=== PATIENT | male | born 1970 | race Caucasian/White ===

== ENCOUNTER 2025-06-14 10:14 | Inpatient (IN) | payer BC, SELFPAY ==
[2025-06-14] VITALS (51 sets, daily range): BP systolic 112–150; BP diastolic 61–77; PULSE 82–125; TEMP 36.8–36.9; O2SAT 97–100; BMI 25.1
--- NOTE | 2025-06-14 10:55 | ECG_ITS ---
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
--- NOTE | 2025-06-14 10:55 | XR_ITS ---
[address] [address] Patient Name: PUNEET HENDRICKS MRN: [id number] date: 1970 Sex: M Assigned Patient Location: ER Current Patient Location: ED.MAIN Accession/Order Number: [id number] Exam Date: 06/14/2025 11:45 Report Date: 06/14/2025 11:59 At the request of: LADY BULLARD MD Procedure: XR chest 1V XR chest 1V 06/14/2025 11:50 AM SIGNS AND SYMPTOMS: Shortness breath, nausea and vomiting PROTOCOL: Fall frontal radiograph of the chest COMPARISON: 02/16/2023 FINDINGS: The trachea is midline. The heart and mediastinal structures are within normal limits. The lung parenchyma is clear. The bony thorax is intact. Degenerative changes are noted in the shoulders and thoracic spine. XR/XR chest 1V IMPRESSION: No acute cardiopulmonary pathology. Impression dictated by: Erickson Bryant M.D. 06/14/2025 11:59 AM Dictation Location: [place] [address] Electronically authenticated by: [id number] Y Date: 06/14/2025 11:59
--- NOTE | 2025-06-14 10:57 | ED.GENADUL1 ---
HPI HPI - General Adult General Chief complaint: Nausea/Vomiting/Diarrhea Stated complaint: NAUSEA/VOMITING Time Seen by Provider: 06/14/25 10:51 Source: patient Mode of arrival: Wheelchair Limitations: no limitations History of Present Illness HPI narrative: The patient is a 54-year-old male with history of diabetes type 2 on insulin the patient apparently for the last 3 to 4 days has not been feeling well has been nauseous vomiting, he is denying any chest pain or any abdominal pain He also denies any fever or chills and the patient mentioned that he has been trying to eat and drink mostly Pedialyte but he has been taking his medication The patient only feeling tired he is denying any other symptoms Related Data Home Medications ?Medication ?Instructions ?Recorded ?Confirmed duloxetine 30 mg capsule,delayed 30 mg PO QDAY 06/14/25 06/14/25 release insulin degludec 100 unit/mL (3 18 unit subcut DAILY 06/14/25 06/14/25 mL) subcutaneous pen insulin lispro 100 unit/mL 1 sliding scale dose subcut .with 06/14/25 06/14/25 subcutaneous pen meals Allergies Allergy/AdvReac Type Severity Reaction Status Date / Time acetaminophen (From Tylenol) Allergy Mild Hives Verified 06/14/25 10:36 meperidine (From Demerol) Allergy Mild Hives Verified 06/14/25 10:36 Review of Systems ROS Status of ROS 10 or more systems reviewed and unremarkable except as noted in history and below PFSH PFSH Social History Little interest or pleasure in doing things: not at all Feeling down, depressed, or hopeless: not at all Exam Narrative Exam Narrative: Nurses notes and vital signs reviewed and patient is not hypoxic. General: Well-appearing and in no apparent distress. Skin: Warm, dry, no pallor noted. No rash. Head: Normocephalic, atraumatic. Neck: Supple, non-tender. Eye: Pupils are equal, round and EOMI. No scleral icterus. Ears, Nose, Mouth, and Throat: . Dry mucous membranes no posterior oropharynx erythema, uvula is mid-line Cardiovascular: Regular Rate and Rhythm without murmur, gallop or rub. Respiratory: No accessory muscle use or respiratory distress. Lungs are clear to auscultation, no wheezing, rales or rhonchi Chest Wall: no tenderness Back: No midline thoracic or lumbar vertebral tenderness. No CVA tenderness Musculoskeletal: normal ROM, no calf or popliteal tenderness, no lower extremity edema/swelling GI: Abdomen is soft, non-distended. Normal bowel sounds. No masses appreciated. No tenderness to palpation. No rebound, guarding, or rigidity noted. Neurological: A&O x4. No cranial nerve dysfunction observed. No truncal ataxia. Moves all extremities. Sensation intact. Psychiatric: Cooperative and interactive. Normal mood and affect. Constitutional Vital Signs, click to edit/add: Last Vital Signs Temp 98.4 F 06/14/25 10:37 Pulse 100 H 06/14/25 15:30 Resp 16 06/14/25 15:30 BP 125/70 06/14/25 15:30 Pulse Ox 100 06/14/25 15:30 O2 Del Method Room Air 06/14/25 15:30 Course Vital Signs Vital signs: Vital Signs Temperature 98.4 F 06/14/25 10:37 Pulse Rate 125 H 06/14/25 10:37 Respiratory Rate 20 06/14/25 10:37 Blood Pressure 127/65 06/14/25 10:37 Pulse Oximetry 99 06/14/25 10:37 Oxygen Delivery Method Room Air 06/14/25 10:37 Temperature 98.4 F 06/14/25 10:37 Pulse Rate 100 H 06/14/25 15:30 Respiratory Rate 16 06/14/25 15:30 Blood Pressure 125/70 06/14/25 15:30 Pulse Oximetry 100 06/14/25 15:30 Oxygen Delivery Method Room Air 06/14/25 15:30 Medical Decision Making [facility] Narrative Medical decision making narrative: The patient was noted to be tachycardic on arrival his EKG was showing sinus tachycardia with a heart rate of [address] elevation The patient CBC showed no acute significant pathology but the chemistry was showing that the patient have a DKA with a picture of elevated anion gap of 33 and bicarb was around 5.9 The patient venous blood gas confirmed acidosis and the patient also had acetone's and the urine shows ketones Patient blood sugar was above 400 upon arrival the patient was started on IV fluids initially with 1 bolus 1 L of normal saline and the patient then started on insulin drip in addition to normal saline initially The patient blood workup repeated after an hour from the insulin drip and it shows improvement with anion gap right now at 27 The patient still have improvement of his kidney function and potassium right now The patient did had a troponin that is mildly elevated at 76 went up to 92 which is mostly secondary to the tachycardia at the patient have a history of coronary artery disease as well The patient did not have any chest pain at any time The patient case discussed with and he agreed on the above-mentioned plan Lab Data Labs: Lab Results 06/14/25 06/14/25 06/14/25 Range/Units 11:21 11:58 13:24 WBC 13.2 H (4.0-11.0) 10^3/uL RBC 4.78 (4.70-6.10) 10^6/uL Hgb 15.5 (14.0-18.0) g/dL Hct 46.2 (42.0-54.0) % MCV 96.7 H (80.0-94.0) fL MCH 32.4 (25.9-34.0) pg MCHC 33.5 (29.9-35.2) g/dL RDW 11.6 (11.0-15.0) % Plt Count 257 (150-450) 10^3/uL MPV 11.0 (9.5-13.5) fL Neut % (Auto) 87.5 H (43.0-75.0) % Lymph % (Auto) 4.6 L (20.5-60.0) % Boundary % (Auto) 6.7 (1.7-12.0) % Eos % (Auto) 0.1 L (0.9-7.0) % Baso % (Auto) 0.3 (0.2-2.0) % Neut # (Auto) 11.5 H (1.4-6.5) 10^3/uL Lymph # (Auto) 0.6 L (1.2-3.8) 10^3/uL Boundary # (Auto) 0.9 H (0.3-0.8) 10^3/uL Eos # (Auto) 0.0 (0.0-0.7) 10^3/uL Baso # (Auto) 0.0 (0.0-0.1) 10^3/uL Abs Immat Gran (auto) 0.10 H (0.00-0.03) 10^3/uL Imm/Tot Granulo (auto) 0.8 H (0.0-0.5) % VBG pH (7.330-7.430) VBG pCO2 (40.0-52.0) mmHg Sodium 139 (136-145) mmol/L Potassium 5.6 H (3.5-5.1) mmol/L Chloride 100 (98-107) mmol/L Carbon Dioxide 5.9 L (21.0-32.0) mmol/L Anion Gap 38.7 BUN 29.0 H (7.0-18.0) mg/dL Creatinine 1.96 H (0.70-1.30) mg/dL Est GFR ( Amer) 43 L (>=60 mL/min/1.73m^2) Est GFR (Non-Af Amer) 36 L (>=60 mL/min/1.73m^2) BUN/Creatinine Ratio 14.8 Glucose 423 H (74-106) mg/dL Estimat Average Glucose 306 mg/dL Hemoglobin A1c 12.3 H (4.5-6.2) % Calcium 8.5 (8.5-10.1) mg/dL Phosphorus 7.4 H* (2.6-4.7) mg/dL Magnesium 2.2 (1.8-2.4) mg/dL Total Bilirubin 0.8 (0.2-1.0) mg/dL AST 15 (15-37) U/L ALT 25 (16-63) U/L Alkaline Phosphatase 65 (46-116) U/L Troponin I High Sens 78.9 H* (4.0-76.1) pg/mL Total Protein 7.9 (6.4-8.2) g/dL Albumin 3.9 (3.4-5.0) g/dL Globulin 4.0 g/dL Albumin/Globulin Ratio 1.0 Acetone, Qual Moderate A (NEGATIVE) POC Glucose 371 H (74-106) mg/dL 06/14/25 06/14/25 06/14/25 Range/Units 13:29 14:27 15:09 WBC (4.0-11.0) 10^3/uL RBC (4.70-6.10) 10^6/uL Hgb (14.0-18.0) g/dL Hct (42.0-54.0) % MCV (80.0-94.0) fL MCH (25.9-34.0) pg MCHC (29.9-35.2) g/dL RDW (11.0-15.0) % Plt Count (150-450) 10^3/uL MPV (9.5-13.5) fL Neut % (Auto) (43.0-75.0) % Lymph % (Auto) (20.5-60.0) % Boundary % (Auto) (1.7-12.0) % Eos % (Auto) (0.9-7.0) % Baso % (Auto) (0.2-2.0) % Neut # (Auto) (1.4-6.5) 10^3/uL Lymph # (Auto) (1.2-3.8) 10^3/uL Boundary # (Auto) (0.3-0.8) 10^3/uL Eos # (Auto) (0.0-0.7) 10^3/uL Baso # (Auto) (0.0-0.1) 10^3/uL Abs Immat Gran (auto) (0.00-0.03) 10^3/uL Imm/Tot Granulo (auto) (0.0-0.5) % VBG pH 7.045 L 7.077 L (7.330-7.430) VBG pCO2 23.8 L 27.3 L (40.0-52.0) mmHg Sodium 140 (136-145) mmol/L Potassium 3.9 (3.5-5.1) mmol/L Chloride 105 (98-107) mmol/L Carbon Dioxide 7.9 L (21.0-32.0) mmol/L Anion Gap 31.0 BUN 27.0 H (7.0-18.0) mg/dL Creatinine 1.69 H (0.70-1.30) mg/dL Est GFR ( Amer) 52 L (>=60 mL/min/1.73m^2) Est GFR (Non-Af Amer) 42 L (>=60 mL/min/1.73m^2) BUN/Creatinine Ratio 16.0 Glucose 272 H (74-106) mg/dL Estimat Average Glucose mg/dL Hemoglobin A1c (4.5-6.2) % Calcium 8.3 L (8.5-10.1) mg/dL Phosphorus (2.6-4.7) mg/dL Magnesium (1.8-2.4) mg/dL Total Bilirubin (0.2-1.0) mg/dL AST (15-37) U/L ALT (16-63) U/L Alkaline Phosphatase (46-116) U/L Troponin I High Sens 92.8 H* (4.0-76.1) pg/mL Total Protein (6.4-8.2) g/dL Albumin (3.4-5.0) g/dL Globulin g/dL Albumin/Globulin Ratio Acetone, Qual (NEGATIVE) POC Glucose 307 H (74-106) mg/dL 06/14/25 Range/Units 15:28 WBC (4.0-11.0) 10^3/uL RBC (4.70-6.10) 10^6/uL Hgb (14.0-18.0) g/dL Hct (42.0-54.0) % MCV (80.0-94.0) fL MCH (25.9-34.0) pg MCHC (29.9-35.2) g/dL RDW (11.0-15.0) % Plt Count (150-450) 10^3/uL MPV (9.5-13.5) fL Neut % (Auto) (43.0-75.0) % Lymph % (Auto) (20.5-60.0) % Boundary % (Auto) (1.7-12.0) % Eos % (Auto) (0.9-7.0) % Baso % (Auto) (0.2-2.0) % Neut # (Auto) (1.4-6.5) 10^3/uL Lymph # (Auto) (1.2-3.8) 10^3/uL Boundary # (Auto) (0.3-0.8) 10^3/uL Eos # (Auto) (0.0-0.7) 10^3/uL Baso # (Auto) (0.0-0.1) 10^3/uL Abs Immat Gran (auto) (0.00-0.03) 10^3/uL Imm/Tot Granulo (auto) (0.0-0.5) % VBG pH (7.330-7.430) VBG pCO2 (40.0-52.0) mmHg Sodium (136-145) mmol/L Potassium (3.5-5.1) mmol/L Chloride (98-107) mmol/L Carbon Dioxide (21.0-32.0) mmol/L Anion Gap BUN (7.0-18.0) mg/dL Creatinine (0.70-1.30) mg/dL Est GFR ( Amer) (>=60 mL/min/1.73m^2) Est GFR (Non-Af Amer) (>=60 mL/min/1.73m^2) BUN/Creatinine Ratio Glucose (74-106) mg/dL Estimat Average Glucose mg/dL Hemoglobin A1c (4.5-6.2) % Calcium (8.5-10.1) mg/dL Phosphorus (2.6-4.7) mg/dL Magnesium (1.8-2.4) mg/dL Total Bilirubin (0.2-1.0) mg/dL AST (15-37) U/L ALT (16-63) U/L Alkaline Phosphatase (46-116) U/L Troponin I High Sens (4.0-76.1) pg/mL Total Protein (6.4-8.2) g/dL Albumin (3.4-5.0) g/dL Globulin g/dL Albumin/Globulin Ratio Acetone, Qual (NEGATIVE) POC Glucose 230 H (74-106) mg/dL Discharge Plan Discharge Chief Complaint: Nausea/Vomiting/Diarrhea Clinical Impression: Diabetic keto-acidosis, Elevated troponin, AGUS (acute kidney injury) Patient Disposition: Admitted As Inpatient Time of Disposition Decision: 16:31
[2025-06-14] MEDS: 0.9 % SODIUM CHLORIDE 1,000 ML 1000 ML IV ×2 (11:28→13:09)
[2025-06-14 11:29] LABS: Hematocrit 46.2 % (42.0-54.0); Hemoglobin 15.5 g/dL (14.0-18.0); Immature Granulocytes Abs Auto 0.10 10^3/uL (0.00-0.03); Immature Granulocytes Pct Auto 0.8 % (0.0-0.5); Lymphocytes Absolute Auto 0.6 10^3/uL (1.2-3.8); Mean Corpuscular HGB Conc 33.5 g/dL (29.9-35.2); Mean Corpuscular Hemoglobin 32.4 pg (25.9-34.0); Mean Corpuscular Volume 96.7 fL (80.0-94.0); Platelet Count 257 10^3/uL (150-450); Red Blood Count 4.78 10^6/uL (4.70-6.10); White Blood Count 13.2 10^3/uL (4.0-11.0)
--- OUTSIDE RECORDS SUMMARY | 2025-06-14 12:01 | XMS_ITS | Clinical Summary ---
Author Organization [facility] Address [address] [place] [address] Phone Care Team Providers Care Food General Manager Name Role Phone Mackenzie Christie MD Primary Care Provider [phone] Allergies Active Allergy Reactions Criticality Noted Date Comments Meperidine Unknown 11/12/2023 Morphine Unknown 11/12/2023 Acetaminophen Unknown 11/12/2023 Medications pioglitazone (Actos) 45 mg tablet Take 1 tablet (45 mg) by mouth once daily. Active aspirin 81 mg EC tablet Take 1 tablet (81 mg) by mouth once daily. Active ticagrelor (Brilinta) 90 mg tablet Take 1 tablet (90 mg) by mouth 2 times a day. Active ezetimibe (Zetia) 10 mg tablet Take 1 tablet (10 mg) by mouth once daily. Active losartan (Cozaar) 25 mg tablet Take 1 tablet (25 mg) by mouth once daily. Active metoprolol tartrate (Lopressor) 50 mg tablet Take 1 tablet by mouth once daily. Active pravastatin (Pravachol) 20 mg tablet Take 1 tablet (20 mg) by mouth once daily. Active insulin glargine (Toujeo Max U-300 SoloStar) 300 unit/mL (3 mL) injection Inject 300 Units under the skin once daily at bedtime. Take as directed per insulin instructions. Active traZODone (Desyrel) 50 mg tablet Take 1 tablet (50 mg) by mouth once daily at bedtime. Active Active Problems Problem Noted Date Diagnosed Date Coronary artery disease invo lving [place] coronary artery of [place] heart with angina pectoris with documented spasm 11/12/2023 History of AK (myocardial infarction) 11/12/2023 History of PTCA 11/12/2023 Hyperlipidemia 11/12/2023 Diabetes mellitus (Multi) 11/12/2023 Family History Medical History Relation Name Comments MALIGNANT NEOPLASM Father Relation Name Status Comments Father Social History Tobacco Use Types Packs/Day Years Used Date Smoking Tobacco: Former Cigarettes Smokeless Tobacco: Never Tobacco Cessation:Counseling Given: Not Answered Alcohol Use Standard Drinks/Week Comments Yes 0 (1 standard drink = 0.6 oz pur e alcohol) Sex and Gender Information Value Date Recorded Sex Assigned at Not on file Legal Sex Male 11:54 AM EDT Gender Identity Not on file Sexual Orientation Not on file Last Filed Vital Signs Vital Sign Reading Time Taken Comments Blood Pressure 120/68 05/12/2023 8:34 AM EDT Pulse 80 05/12/2023 8:34 AM EDT Temperature - - Respiratory Rate - - Oxygen Saturation - - Inhaled Oxygen Concentration - - Weight 77.1 kg (170 lb) 05/12/2023 8:34 AM EDT Height 175.3 cm (5' 9 ) 05/12/2023 8:34 AM EDT Body Mass Index 25.1 05/12/2023 8:34 AM EDT Plan of Treatment Health Maintenance Due Date Last Done Comments CT Colonography 1970 Colonoscopy 1970 Colorectal Cancer Screening 1970 Diabetes: Hemoglobin A1C 1970 Diabetes: Urine Protein Screening 1970 FIT-DNA (Cologuard) 1970 FIT 1970 HIV Screening 1970 Lipid Panel 1970 Sigmoidoscopy 1970 Yearly Adult Physical 1970 MMR Vaccines (1 of 1 - Stand marleni series) 1971 Diabetes: Retinopathy Screening 1980 Hepatitis C Screening 1988 Hepatitis B Vaccines (1 of 3 - 19+ 3-dose series) 1989 Pneumococcal Vaccine (1 of 2 - PCV) 1989 DTaP/Tdap/Td Vaccines (1 - Tdap) 1992 PSA Prostate Cancer Screening 2020 Zoster Vaccines (1 of 2) 2020 COVID-19 Vaccine (1 - 2023-2 5 season) 2025 Influenza Vaccine (#1) 2025 HIB Vaccines Aged Out No longer eligi ble based on patient's age to complete this topic HPV Vaccines Aged Out No longer eligi ble based on patient's age to complete this topic Hepatitis A Vaccines Aged Out No long er eligible based on patient's age to complete this topic IPV Vaccines Aged Out No longer eligi ble based on patient's age to complete this topic Meningococcal Vaccine Aged Out No gissel anna eligible based on patient's age to complete this topic Rotavirus Vaccines Aged Out No longer eligible based on patient's age to complete this topic Insurance [facility] Care Teams Food General Manager Relationship Specialty Start Date End Date Mackenzie Christie MD [facility] [address] [place] [id number] PCP - General 03/11/23
--- OUTSIDE RECORDS SUMMARY | 2025-06-14 12:01 | XMS_ITS | Encounter Summary ---
Author Organization [facility] Address [address] [place] [address] Phone Care Team Providers Care Office Technician Name Role Phone Mackenzie Christie MD Primary Care Provider Encounter Details Date Type Department Care Team (Late st Contact Info) Description 02/18/2023 Orders Only [facility] [address] [place] [address] Conversion, Onbase Social History Tobacco Use Types Packs/Day Years Used Date Smoking Tobacco: Never Assessed Sex and Gender Information Value Date Recorded Sex Assigned at Not on file Legal Sex Male 11:54 AM EDT Gender Identity Not on file Sexual Orientation Not on file documented as of this encounter Plan of Treatment Scheduled Orders Name Type Priority Associated Diagnoses Orde r Schedule OUTSIDE LAB SCAN Lab Ordered: 02/18/2023 documented as of this encounter Visit Diagnoses Not on filedocumented in this encounter Care Teams Office Technician Relationship Specialty Start Date End Date Mackenzie Christie MD [address] [place] [address] [place] [address] PCP - General 03/11/23 documented as of this encounter
--- OUTSIDE RECORDS SUMMARY | 2025-06-14 12:01 | XMS_ITS | Encounter Summary ---
Author Organization [facility] Address [address] [place] [address] Phone Care Team Providers Care Humanities Coordinator Name Role Phone Mackenzie Christie MD Primary Care Provider [phone] Encounter Details Date Type Department Care Team (Late st Contact Info) Description 02/17/2023 Orders Only [facility] [address] [place] [address] Conversion, Onbase Social History Tobacco Use Types [...] r Schedule OUTSIDE LAB SCAN Lab Ordered: 02/17/2023 documented as of this encounter Visit Diagnoses Not on filedocumented in this encounter Care Teams Humanities Coordinator Relationship Specialty Start Date End Date Mackenzie Christie MD [address] [place] [address] [place] [address] PCP - General 03/11/23 documented as of this encounter
[2025-06-14 12:36] LABS: Alanine Aminotransferase 25 U/L (16-63); Albumin Globulin Ratio 1.0; Albumin Level 3.9 g/dL (3.4-5.0); Alkaline Phosphatase 65 U/L (46-116); Anion Gap 38.7; Aspartate Amino Transferase 15 U/L (15-37); Blood Urea Nitrogen 29.0 mg/dL (7.0-18.0); Calcium 8.5 mg/dL (8.5-10.1); Carbon Dioxide 5.9 mmol/L (21.0-32.0); Chloride 100 mmol/L (98-107); Estimated GFR (African America 43 (>=60 mL/min/1.73m^2); Estimated GFR (Non-African Ame 36 (>=60 mL/min/1.73m^2); Globulin 4.0 g/dL; Glucose 423 mg/dL (74-106); Potassium 5.6 mmol/L (3.5-5.1); Sodium 139 mmol/L (136-145); Total Protein 7.9 g/dL (6.4-8.2)
[2025-06-14 13:40] LABS: PCO2 VBG 23.8 mmHg (40.0-52.0); pH VBG 7.045 (7.330-7.430)
[2025-06-14 13:49] LABS: Magnesium 2.2 mg/dL (1.8-2.4)
[2025-06-14] MEDS: INSULIN REGULAR IN 0.9 % NACL 100 UNIT/100 ML PLAST..BAG 7.711 UNIT IV (13:49)
[2025-06-14 15:22] LABS: PCO2 VBG 27.3 mmHg (40.0-52.0); pH VBG 7.077 (7.330-7.430)
[2025-06-14 15:39] LABS: Anion Gap 31.0; Blood Urea Nitrogen 27.0 mg/dL (7.0-18.0); Calcium 8.3 mg/dL (8.5-10.1); Carbon Dioxide 7.9 mmol/L (21.0-32.0); Chloride 105 mmol/L (98-107); Estimated GFR (African America 52 (>=60 mL/min/1.73m^2); Estimated GFR (Non-African Ame 42 (>=60 mL/min/1.73m^2); Glucose 272 mg/dL (74-106); Potassium 3.9 mmol/L (3.5-5.1); Sodium 140 mmol/L (136-145)
[2025-06-14] MEDS: DEXTROSE 5 %-0.45 % SOD CHLORD 1,000 ML 200 ML IV (15:57)
--- NOTE | 2025-06-14 17:15 | PM.HP ---
HPI H&P: HPI History of Present Illness Chief complaint: Diabetic KETO ACIDOSIS AKL Narrative: Mr. Huggins is a 54-year-old gentleman with history of diabetes. He came in with 3 days history of progressive nausea, vomiting and not feeling well. He was found to have severe DKA. No fever or chills. No chest pain or palpitation. No abdominal pain, just abdominal discomfort. Patient uses his insulin at home but admitted that he has not been using insulin over the last few days. Opioid HPI Opioid Management Most Recent Pain and Opioid Data: Last Pain Assessment 06/14/25, 19:00 Last ORT Total Score 0 06/14/25, 18:02 Last ORT Risk Category Low Risk 06/14/25, 18:02 Review of Systems ROS Status of ROS 10 or more systems reviewed and unremarkable except as noted in history and below PFSH PFS Medical History (Updated 06/14/25 @ 18:27 by Savanah Justin) History of herniated intervertebral disc ?Z87.39 - Personal history of other diseases of the musculoskeletal system and connective tissue (ICD-10) Coronary artery disease ?I25.10 - Atherosclerotic heart disease of [place] coronary artery without angina pectoris (ICD-10) Diabetes mellitus ?E11.9 - Type 2 diabetes mellitus without complications (ICD-10) Surgical History (Updated 06/14/25 @ 18:27 by Savanah Justin) History of back surgery ?Z98.890 - Other specified postprocedural states (ICD-10) History of tonsillectomy ?Z90.89 - Acquired absence of other organs (ICD-10) History of heart artery stent ?Z95.5 - Presence of coronary angioplasty implant and graft (ICD-10) Social History (Updated 06/14/25 @ 18:28 by Savanah Justin) Smoking status: Former smoker Nicotine containing products detail: occ cigar Non-prescribed substance use: denies use Highest level of school completed/degree received: high school graduate Little interest or pleasure in doing things: not at all Feeling down, depressed, or hopeless: not at all Meds Home Medications and Allergies Home Medications ?Medication ?Instructions ?Recorded ?Confirmed ?Type duloxetine 30 mg capsule,delayed 30 mg PO QDAY 06/14/25 06/14/25 History release insulin degludec 100 unit/mL (3 18 unit subcut DAILY 06/14/25 06/14/25 History mL) subcutaneous pen insulin lispro 100 unit/mL 1 sliding scale dose subcut .with 06/14/25 06/14/25 History subcutaneous pen meals Allergies Allergy/AdvReac Type Severity Reaction Status Date / Time acetaminophen (From Tylenol) Allergy Mild Hives Verified 06/14/25 10:36 meperidine (From Demerol) Allergy Mild Hives Verified 06/14/25 10:36 Exam Narrative Exam Narrative: [pt is awake and alert. oriented to place, time and person, somewhat lethargic HEENT: [place] conjunctiva and NL buccal mucosa dry buccal mucosa Neck: Supple, no tenderness Endocrine: No Thyromegaly. Vascular: No JVD or carotid bruit. Lymphatic: No cervical lymphadenopathy. Chest: CTA no DTP. Heart RRR, no extra sound or murmur. Abd: Soft, no tenderness, no rebound and no rigidity. Increase abd girth therefore clinically I could not exclude the possibility of intra abd mass or organomegaly. LE: No cyanosis or clubbing, no varices or edema. Neuro: A A O. Nl speech, comprehension and attention. Nl and symetrical motor and tone examination through out. []] Constitutional Vital Signs, click to edit/add: Last Vital Signs Temp 98.4 F 06/14/25 10:37 Pulse 97 H 06/14/25 16:40 Resp 16 06/14/25 15:30 BP 112/71 06/14/25 16:30 Pulse Ox 98 06/14/25 16:40 O2 Del Method Room Air 06/14/25 15:30 Results Labs Labs: Short CBC 06/14/25 Range/Units 11:21 WBC 13.2 H (4.0-11.0) 10^3/uL Hgb 15.5 (14.0-18.0) g/dL Hct 46.2 (42.0-54.0) % Plt Count 257 (150-450) 10^3/uL BMP 06/14/25 06/14/25 11:58 15:09 Sodium 139 140 Potassium 5.6 H 3.9 Chloride 100 105 Carbon Dioxide 5.9 L 7.9 L BUN 29.0 H 27.0 H Creatinine 1.96 H 1.69 H Glucose 423 H 272 H Calcium 8.5 8.3 L Liver Function 06/14/25 Range/Units 11:58 Total Bilirubin 0.8 (0.2-1.0) mg/dL AST 15 (15-37) U/L ALT 25 (16-63) U/L Alkaline Phosphatase 65 (46-116) U/L Albumin 3.9 (3.4-5.0) g/dL ABG ABG results: 06/14/25 06/14/25 13:29 15:09 VBG pH 7.045 L 7.077 L VBG pCO2 23.8 L 27.3 L Assessment and Plan Assessment and Plan (1) AGUS (acute kidney injury): (2) Elevated troponin: (3) Diabetic keto-acidosis: Plan DKA I have accepted to admit the patient to the stepdown unit. Insulin drip. Titration Fluid as per protocol Electrolytes management Monitor bicarbonate and anion gap Switch to sliding scale when gap closes down Check A1c Counseling and education about diabetes and diabetes management AGUS, dehydration and volume loss secondary to above IV fluid infusion, electrolytes disturbance, volume support. SIRS present on admission secondary to above. No clinical evidence of active infection Monitor white count and temperature. Elevated troponin without any active chest pain. No ST elevation or depression. Patient has right bundle. No old records available. I suspect that troponin elevation is secondary to acute metabolic derangement in the setting of AGUS. No clinical evidence to suggest acute coronary syndrome or acute plaque rupture however I suspect that the patient has underlying CAD and will likely require ischemic evaluation. The timing of ischemic evaluation would need to be determined as soon as his acute metabolic decompensation is corrected Meanwhile I will start patient on aspirin daily, small dose beta-sriram. 1 dose of Lovenox 1 mg/kg until we see how his troponin is trending. 1 dose of Plavix. No obvious clinical contraindication for that. Echocardiogram to assess cardiac function, valvular status. If echocardiogram does not show cardiomyopathy then elective ischemic evaluation would be desirable. Chronic medical conditions not listed above, incidental findings seen on labs and imaging. These would need to be addressed. Could be addressed when time and condition are appropriate. Could be addressed in the outpatient setting by PCP collaboration with other needed outpatient providers.
[2025-06-14] MEDS: POTASSIUM CHLORIDE 20 MEQ in 0.9 % SODIUM CHLORIDE 250 ML 130 MEQ IV (17:19)
[2025-06-14] MEDS: CLOPIDOGREL BISULFATE 75 MG TABLET 150 MG PO (18:12)
[2025-06-14] MEDS: ENOXAPARIN SODIUM 80 MG/0.8 ML SYRINGE 75 MG SUBQ (18:12)
[2025-06-14] MEDS: ASPIRIN 325 MG TABLET.DR PO (18:12)
[2025-06-14] MEDS: POTASSIUM CHLORIDE 10 MEQ ER TABLET 20 MEQ PO (18:12)
--- NOTE | 2025-06-14 18:33 | PC.NURSE ---
1800 admitted to stepdown from er, bedside report obtained. pt accompanied by visitor. denies pain, stated he is hungry. pt stated he started not feeling well of last week, then started with n/v on friday. pt has prescription meds with him, those were locked in [employer] sales and service supervisor room. pt oriented to room and call light, meal ordered per request.
[2025-06-14] MEDS: METOPROLOL TARTRATE 25 MG TABLET PO (20:13)
[2025-06-14] MEDS: PANTOPRAZOLE SODIUM 40 MG TABLET.DR PO (20:14)
[2025-06-14] MEDS: TEMAZEPAM 15 MG CAPSULE PO (20:16)
[2025-06-14 22:09] LABS: Anion Gap 16.9; Blood Urea Nitrogen 18.0 mg/dL (7.0-18.0); Calcium 7.6 mg/dL (8.5-10.1); Carbon Dioxide 18.6 mmol/L (21.0-32.0); Chloride 105 mmol/L (98-107); Estimated GFR (African America 53 (>=60 mL/min/1.73m^2); Estimated GFR (Non-African Ame 43 (>=60 mL/min/1.73m^2); Glucose 272 mg/dL (74-106); Potassium 4.5 mmol/L (3.5-5.1); Sodium 136 mmol/L (136-145)
[2025-06-14] MEDS: DEXTROSE 5 %-0.45 % SOD CHLORD 1,000 ML 150 ML IV (23:28)
[2025-06-15] VITALS (69 sets, daily range): BP systolic 97–120; BP diastolic 51–70; PULSE 72–103; TEMP 36.6–37.1; O2SAT 96–100
[2025-06-15 05:52] LABS: Hematocrit 36.7 % (42.0-54.0); Hemoglobin 12.8 g/dL (14.0-18.0); Immature Granulocytes Abs Auto 0.03 10^3/uL (0.00-0.03); Immature Granulocytes Pct Auto 0.6 % (0.0-0.5); Lymphocytes Absolute Auto 1.1 10^3/uL (1.2-3.8); Mean Corpuscular HGB Conc 34.9 g/dL (29.9-35.2); Mean Corpuscular Hemoglobin 32.7 pg (25.9-34.0); Mean Corpuscular Volume 93.9 fL (80.0-94.0); Platelet Count 170 10^3/uL (150-450); Red Blood Count 3.91 10^6/uL (4.70-6.10); White Blood Count 5.4 10^3/uL (4.0-11.0)
[2025-06-15 06:14] LABS: Anion Gap 16.2; Blood Urea Nitrogen 16.0 mg/dL (7.0-18.0); Calcium 8.0 mg/dL (8.5-10.1); Carbon Dioxide 18.6 mmol/L (21.0-32.0); Chloride 106 mmol/L (98-107); Estimated GFR (African America >60 (>=60 mL/min/1.73m^2); Estimated GFR (Non-African Ame 55 (>=60 mL/min/1.73m^2); Glucose 174 mg/dL (74-106); Potassium 3.8 mmol/L (3.5-5.1); Sodium 137 mmol/L (136-145)
[2025-06-15 06:17] LABS: Alanine Aminotransferase 19 U/L (16-63); Albumin Globulin Ratio 1.0; Albumin Level 3.3 g/dL (3.4-5.0); Alkaline Phosphatase 54 U/L (46-116); Aspartate Amino Transferase 11 U/L (15-37); Globulin 3.4 g/dL; Total Protein 6.7 g/dL (6.4-8.2)
[2025-06-15 06:20] LABS: Cholesterol 236 mg/dL (<=200); Magnesium 2.1 mg/dL (1.8-2.4); Triglycerides 117 mg/dL (<=150); VLDL CHOLESTEROL 23.4 mg/dL
[2025-06-15 06:21] LABS: HDL Cholesterol 48 mg/dL (40-60)
--- NOTE | 2025-06-15 07:00 | ECG_ITS ---
[facility] Test Date: 2025-06-15 Pat Name: PUNEET HENDRICKS Department: Room: [facility] [place] Gender: Male Manager Of Operations: : 1970 Requested By: [id number] Order Number: [id number] Reading MD: ANGELES KITCHEN M.D. Measurements Intervals Lang[place] Rate: 77 P: 61 AR: 130 QRS: 82 QRSD: 122 T: 62 QT: 508 QTc: 540 Interpretive Statements 1100 Sinus rhythm 24[address] Right bundle branch block [address]LEV, PROBABLE NORMAL EARLY REPOL PATTERN 9150 abnormal ECG Compared to ECG 06/14/2025 11:06:17 Sinus tachycardia no longer present Atrial abnormality no longer present Electronically Signed On 06-15-2025 7:11:41 EDT by ANGELES KITCHEN M.D.
[2025-06-15] MEDS: SOD PHOSPHATE,MONOBASIC-DIBAS 30 MMOL in 0.9 % SODIUM CHLORIDE 250 ML 43.333 MMOL IV (08:00)
[2025-06-15] MEDS: INSULIN ASPART 300 UNIT/3 ML PEN SUBQ ×3 (08:00→21:37)
[2025-06-15] MEDS: INSULIN ASPART 300 UNIT/3 ML PEN 6 UNIT SUBQ ×2 (08:01→11:14)
[2025-06-15] MEDS: INSULIN GLARGINE 300 UNIT/3 ML INSULN.PEN 20 UNIT SQ (08:01)
[2025-06-15] MEDS: ASPIRIN 325 MG TABLET.DR PO (08:48)
[2025-06-15] MEDS: METOPROLOL TARTRATE 25 MG TABLET PO ×2 (08:48→21:33)
[2025-06-15] MEDS: PANTOPRAZOLE SODIUM 40 MG TABLET.DR PO ×2 (08:48→21:33)
--- NOTE | 2025-06-15 09:29 | CM.NOTE ---
Rounded with . A cardio consult was placed due to elevated troponin and history of two stents placed at [facility].
--- NOTE | 2025-06-15 09:52 | P.CACN_ITS ---
History of Present Illness History of Present Illness Consult date: 06/15/25 Requesting physician: Donnell Jackson Chief complaint: Diabetic KETO ACIDOSIS AKL Narrative: Mr. Huggins is a 54 yo male who presents with DKA and we were consulted for abnormal troponin values. 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 On Friday he began to feel quesy with nausea which progressed. He stopped taking insulin in this setting and came in yesterday feeling unwell in DKA. Importantly he denies chest pain or SOB prior to admission or with this episode. Three years ago he had a similar episode, however, at that time he had chest pain as well and underwent 3 coronary stents at [facility]. Review of Systems ROS Constitutional Reports: fever and fatigue Ears, nose, mouth, and throat Reports: neck pain (no) Cardiovascular Reports: chest pain (no), edema (no), lightheadedness and shortness of breath with exertion (no) Respiratory Reports: shortness of breath (no) and cough (no) Gastrointestinal Reports: abdominal pain (no), nausea and vomiting Genitourinary Reports: blood in urine (no) Musculoskeletal Reports: extremity swelling (no) Neurological Reports: headache (no) and confusion (no) [facility] Medical History (Updated 06/14/25 @ 18:27 by Savanah Justin) History of herniated intervertebral disc ?Z87.39 - Personal history of other diseases of the musculoskeletal system and connective tissue (ICD-10) Coronary artery disease ?I25.10 - Atherosclerotic heart disease of [place] coronary artery without angina pectoris (ICD-10) Diabetes mellitus ?E11.9 - Type 2 diabetes mellitus without complications (ICD-10) Surgical History (Updated 06/14/25 @ 18:27 by Savanah Justin) History of back surgery ?Z98.890 - Other specified postprocedural states (ICD-10) History of tonsillectomy ?Z90.89 - Acquired absence of other organs (ICD-10) History of heart artery stent ?Z95.5 - Presence of coronary angioplasty implant and graft (ICD-10) Social History (Updated 06/14/25 @ 18:28 by Savanah Justin) Smoking status: Former smoker Nicotine containing products detail: occ cigar Non-prescribed substance use: denies use Highest level of school completed/degree received: high school graduate Little interest or pleasure in doing things: not at all Feeling down, depressed, or hopeless: not at all Meds Home Medications and Allergies Home Medications ?Medication ?Instructions ?Recorded ?Confirmed ?Type duloxetine 30 mg capsule,delayed 30 mg PO QDAY 5 06/14/25 History release insulin degludec 100 unit/mL (3 18 unit subcut DAILY 0 06/14/25 06/14/25 History mL) subcutaneous pen insulin lispro 100 unit/mL 1 sliding scale dose subcut .with 06/14/25 06/14/25 History subcutaneous pen meals Allergies Allergy/AdvReac Type Severity Reaction Status Date / Time acetaminophen (From Tylenol) Allergy Mild Hives Verified 06/14/25 10:36 meperidine (From Demerol) Allergy Mild Hives Verified 06/14/25 10:36 Exam Narrative Exam Narrative: Alert male laying comfortably in bed Constitutional Vital Signs, click to edit/add: Last Vital Signs Temp 97.9 F 06/15/25 08:00 Pulse 91 H 06/15/25 08:40 Resp 27 H 06/15/25 08:40 BP 120/58 06/15/25 08:03 Pulse Ox 100 06/15/25 08:40 O2 Del Method Room Air 06/15/25 08:00 Documenting provider has reviewed patient's vital signs: yes Common normals: no apparent distress, oriented x3 and well nourished General appearance: cooperative Orientation/consciousness: Yes awake and Yes oriented to person [facility] Common normals: normocephalic and head/scalp atraumatic Face and sinus: normal facial exam Chest Common normals: inspection of chest normal Respiratory Common normals: normal respiratory effort Effort & inspection: able to speak in complete sentences Auscultation: crackles (Few crackles at base) Cardio Common normals: no JVD, regular rate, regular rhythm, S1 normal heart sound, S2 normal heart sound, no gallops, no clicks and no murmurs Palpation: normal PMI Peripheral pulses: pulses 2+ throughout GI Common normals: Normal to inspection, nondistended, normoactive bowel sounds present and soft to palpation Auscultation: normoactive bowel sounds Extremity Common normals: normal to inspection and no pedal edema Results Labs and Meds Lab results: Cardiac Enzymes 09/23/25 09/24/25 Range/Units 11:58 05:47 AST 15 11 L (15-37) U/L Lipids 06/15/25 Range/Units 05:47 Triglycerides 117 (<=150) mg/dL Cholesterol 236 H (<=200) mg/dL HDL Cholesterol 48 (40-60) mg/dL Cholesterol/HDL Ratio 4.9 CBC 06/14/25 06/15/25 Range/Units 11:21 05:47 WBC 13.2 H 5.4 (4.0-11.0) 10^3/uL RBC 4.78 3.91 L (4.70-6.10) 10^6/uL Hgb 15.5 12.8 L (14.0-18.0) g/dL Hct 46.2 36.7 L (42.0-54.0) % Plt Count 257 170 (150-450) 10^3/uL Neut # (Auto) 11.5 H 3.6 (1.4-6.5) 10^3/uL Lymph # (Auto) 0.6 L 1.1 L (1.2-3.8) 10^3/uL Addison # (Auto) 0.9 H 0.5 (0.3-0.8) 10^3/uL Eos # (Auto) 0.0 0.1 (0.0-0.7) 10^3/uL Baso # (Auto) 0.0 0.0 (0.0-0.1) 10^3/uL Comprehensive Metabolic Panel 06/14/25 06/14/25 06/14/25 Range/Units 11:58 15:09 21:45 Sodium 139 140 136 (136-145) mmol/L Potassium 5.6 H 3.9 4.5 (3.5-5.1) mmol/L Chloride 100 105 105 (98-107) mmol/L Carbon Dioxide 5.9 L 7.9 L 18.6 L (21.0-32.0) mmol/L BUN 29.0 H 27.0 H 18.0 (7.0-18.0) mg/dL Creatinine 1.96 H 1.69 H 1.66 H (0.70-1.30) mg/dL Glucose 423 H 272 H 272 H (74-106) mg/dL Calcium 8.5 8.3 L 7.6 L (8.5-10.1) mg/dL Direct Bilirubin (0.0-0.2) mg/dL AST 15 (15-37) U/L ALT 25 (16-63) U/L Alkaline Phosphatase 65 (46-116) U/L Total Protein 7.9 (6.4-8.2) g/dL Albumin 3.9 (3.4-5.0) g/dL 06/15/25 Range/Units 05:47 Sodium 137 (136-145) mmol/L Potassium 3.8 (3.5-5.1) mmol/L Chloride 106 (98-107) mmol/L Carbon Dioxide 18.6 L (21.0-32.0) mmol/L BUN 16.0 (7.0-18.0) mg/dL Creatinine 1.36 H (0.70-1.30) mg/dL Glucose 174 H (74-106) mg/dL Calcium 8.0 L (8.5-10.1) mg/dL Direct Bilirubin 0.1 (0.0-0.2) mg/dL AST 11 L (15-37) U/L ALT 19 (16-63) U/L Alkaline Phosphatase 54 (46-116) U/L Total Protein 6.7 (6.4-8.2) g/dL Albumin 3.3 L (3.4-5.0) g/dL Intake and Output 06/14/25 06/15/25 06/15/25 23:59 07:59 15:59 Intake Total 1465.977 / 4643.024 1160.488 / 4643.024 120 / 120 Output Total 400 / 1250 850 / 1250 Balance 1065.977 / 3393.024 310.488 / 3393.024 120 / 120 Intake: Oral 200 / 350 150 / 350 120 / 120 IV 1265.977 / 4293.024 1010.488 / 4293.024 Dextrose 5 %-0.45 % Sod Chlord 1000 / 2000 1000 / 2000 1,000 ml @ 150 mls/hr IV . Q6H40M [facility] Rx#:[id number] Insulin Regular in 0.9 % NaCl 5.977 / 33.024 10.488 / 33.024 100 unit In 100 ml @ 0.1 UNIT/ KG/HR 7.711 mls/hr IV TITR STA Rx#:[id number] Potassium Chloride 20 meq In 0. 260 / 260 9 % Sodium Chloride 250 ml @ 130 mls/hr IV ONCE ONE Rx#: [id number] Output: Urine 400 / 1250 850 / 1250 Other: Weight 7.167 kg 70.216 kg Imaging and Cardiology ECG results: other (I personally reviewed EKGs which demonstrate SR, normal rate, RBBB and non specific ST elevation and DC depression diffusely in a pattern consistent with pericarditis but not diagnostic) Assessment and Plan Assessment and Plan (1) AGUS (acute kidney injury): (2) Elevated troponin: (3) Diabetic keto-acidosis: Plan Mr. Huggins presents with DKA, without cardiac symptoms per se, however he has three troponin values that are above the upper limit of normal, albeit mildly. This could be due to the acute kidney injury. Given cardiac history I would recommend: 1) aspirin 81 mg EC daily indefinitely, 2) Nuclear exercise stress test tomorrow to evaluate for ischemia, 3) statin (atorvastatin 40 mg daily) for future event prevention.
--- NOTE | 2025-06-15 10:57 | P.PN_ITS ---
Progress Note: Subjective Subjective Interval history: Patient is feeling much better. No chest pain or palpitation. No abdominal pain, nausea or vomiting. Exam Narrative Exam Narrative: [pt is awake and alert. oriented to place, time and person HEENT: [place] conjunctiva and NL buccal mucosa Neck: Supple, no tenderness Endocrine: No Thyromegaly. Vascular: No JVD or carotid bruit. Lymphatic: No cervical lymphadenopathy. Chest: CTA no DTP. Heart RRR, no extra sound or murmur. Abd: Soft, no tenderness, no rebound and no rigidity. Increase abd girth therefore clinically I could not exclude the possibility of intra abd mass or organomegaly. LE: No cyanosis or clubbing, no varices or edema. Neuro: A A O. Nl speech, comprehension and attention. Nl and symetrical motor and tone examination through out. []] Constitutional Vital Signs, click to edit/add: Last Vital Signs Temp 97.9 F 06/15/25 08:00 Pulse 75 06/15/25 10:00 Resp 27 H 06/15/25 08:40 BP 120/58 06/15/25 08:03 Pulse Ox 99 06/15/25 10:00 O2 Del Method Room Air 06/15/25 08:00 Progress Note: Objective Labs Labs: Short CBC 06/14/25 06/15/25 Range/Units 11:21 05:47 WBC 13.2 H 5.4 (4.0-11.0) 10^3/uL Hgb 15.5 12.8 L (14.0-18.0) g/dL Hct 46.2 36.7 L (42.0-54.0) % Plt Count 257 170 (150-450) 10^3/uL BMP 06/14/25 06/14/25 06/14/25 11:58 15:09 21:45 Sodium 139 140 136 Potassium 5.6 H 3.9 4.5 Chloride 100 105 105 Carbon Dioxide 5.9 L 7.9 L 18.6 L BUN 29.0 H 27.0 H 18.0 Creatinine 1.96 H 1.69 H 1.66 H Glucose 423 H 272 H 272 H Calcium 8.5 8.3 L 7.6 L 06/15/25 05:47 Sodium 137 Potassium 3.8 Chloride 106 Carbon Dioxide 18.6 L BUN 16.0 Creatinine 1.36 H Glucose 174 H Calcium 8.0 L Liver Function 06/14/25 06/15/25 Range/Units 11:58 05:47 Total Bilirubin 0.8 0.7 (0.2-1.0) mg/dL Direct Bilirubin 0.1 (0.0-0.2) mg/dL AST 15 11 L (15-37) U/L ALT 25 19 (16-63) U/L Alkaline Phosphatase 65 54 (46-116) U/L Albumin 3.9 3.3 L (3.4-5.0) g/dL Progress Note: A&P Assessment and Plan (1) AGUS (acute kidney injury): (2) Elevated troponin: (3) Diabetic keto-acidosis: Plan DKA I have accepted to admit the patient to the stepdown unit. Insulin drip. Titration Fluid as per protocol Electrolytes management Monitor bicarbonate and anion gap Switch to sliding scale when gap closes down Check A1c. A1c is 13 Counseling and education about diabetes and diabetes management DKA had resolved Discontinued insulin drip. Started patient on sliding scale, long-acting, meal insulin as well Counseling and education diabetes and diabetes management AGUS, dehydration and volume loss secondary to above IV fluid infusion, electrolytes disturbance, volume support. Resolving. Continue IV fluid infusion Hypokalemia and hypophosphatemia Potassium and phosphate supplementation. SIRS present on admission secondary to above. No clinical evidence of active infection Monitor white count and temperature. Resolved Elevated troponin without any active chest pain. No ST elevation or depression. Patient has right bundle. No old records available. I suspect that troponin elevation is secondary to acute metabolic derangement in the setting of AGUS. No clinical evidence to suggest acute coronary syndrome or acute plaque rupture however I suspect that the patient has underlying CAD and will likely require ischemic evaluation. The timing of ischemic evaluation would need to be determined as soon as his acute metabolic decompensation is corrected Meanwhile I will start patient on aspirin daily, small dose beta-sriram. 1 dose of Lovenox 1 mg/kg until we see how his troponin is trending. 1 dose of Plavix. No obvious clinical contraindication for that. Echocardiogram to assess cardiac function, valvular status. If echocardiogram does not show cardiomyopathy then elective ischemic evaluation would be desirable. Patient was seen by mandolin repairer who recommended a stress test to be done tomorrow. Defer further needed diagnostic and therapeutic invention prior to the [facility] cardiovascular status to cardiology team Chronic medical conditions not listed above, incidental findings seen on labs and imaging. These would need to be addressed. Could be addressed when time and condition are appropriate. Could be addressed in the outpatient setting by PCP collaboration with other needed outpatient providers.
--- NOTE | 2025-06-15 11:59 | SWNOTE1 ---
Nurse had concerns about pt's dog at home and if pt's friend or family is able to let dog out. SW stopped in to speak with pt. Pt confirmed that his friend was over this morning and let him out and his friend will go back over after he is done working tonight to let dog out.
--- NOTE | 2025-06-15 17:03 | CA_ITS ---
Patient Name: PUNEET HENDRICKS MR#: [id number] : 1970 Exam Date: 06/15/2025 Ordering Doctor: EDWINA ARROYO ECHOCARDIOGRAM REPORT PROCEDURE: CA ECHO DOPPLER COMPLETE INDICATIONS: CAD COMPARISON: None. DESCRIPTION: COMPLETE ECHOCARDIOGRAM Real-time transthoracic echocardiography with 2D, M-mode, spectral and color flow Doppler performed. QUALITY: Technical quality was good. LEFT VENTRICLE: Normal chamber size. Normal left ventricular wall thickness. Global left ventricular systolic function is normal. LV EF: Visual estimation of left ventricular ejection fraction is 65%. DIASTOLIC: Normal diastolic function. ATRIAL SEPTUM: LEFT ATRIUM: Normal chamber size. RIGHT ATRIUM: Normal chamber size. RIGHT VENTRICLE: Normal chamber size. Normal right ventricular systolic function. TRICUSPID VALVE: Normal mobility and thickness. No stenosis with mild regurgitation. No evidence of pulmonary hypertension. RVSP 30 mmHg MITRAL VALVE: Normal mobility and thickness. No evidence of mitral valve stenosis. There is no mitral annular calcification. Trivial mitral regurgitation. AORTIC VALVE: Normal trileaflet appearance. No visible sclerosis. Normal leaflet mobility. No evidence of aortic valve stenosis. No aortic regurgitation. AORTIC ROOT: Normal diameter and appearance, measuring 3.3 cm. The ascending aorta is normal in size measuring 3.2 cm. PULMONIC VALVE: Normal thickness and mobility. No stenosis. Trivial regurgitation. PERICARDIUM: No evidence of pericardial effusion. IVC: Collapses with inspiration. Normal size. PLEURA: CONCLUSION: 1. Normal ventricular size and systolic function. Estimated LVEF is 65%. 2. Normal diastolic function. 3. Mild tricuspid regurgitation. 4. Normal right-sided pressures. Adult Echocardiography Procedure Report Left Ventricle LVEDD (3.7 - 5.6 cm): 4.59 cm LVESD (2.2 - 4.0 cm): 2.86 cm LVIVS thickness (0.6 - 1.2 cm): 0.95 cm LVPW thickness (0.5 - 1.0 cm): 0.89 cm e': 0.12 m/s E - e': 5.04 LVOT Max Gradient: 4.75 mm[Hg] LVOT Area (cm2): 1.09 m/s Peak Velocity (LVOT): 1.09 m/s Mean Velocity (LVOT): 0.74 m/s LVOT Diameter 2.40 cm Left Ventricular Ejection Fraction: 65 % Left Atrium LA Volume Index (2D A2C): 33.80 ml/m2 Left Atrium Systolic Dimension: 3.63 cm Mitral Valve MV E to A Ratio: 1.10, 1.07 Mitral Valve A-Wave Peak Velocity: 0.56 m/s Mitral Valve E-Wave Peak Velocity: 0.61 m/s Right Ventricle RV Internal Diastolic Dimension: 3.25 cm Aorta AO Root Diam: 3.25 cm Ascending Ao Diam: 3.25 cm Aortic Valve AoV Area (Peak Joe): 3.47 cm2, 3.47 cm2 AoV Area (VTI): 4.03 cm2, 4.03 cm2 Peak Velocity(Antegrade Flow): 1.42 m/s Peak Gradient(Antegrade Flow): 8.03 mm[Hg] Mean Velocity(Antegrade Flow): 1.00 m/s Mean Gradient(Antegrade Flow): 4.38 mm[Hg] Velocity Time Integral: 24.62 cm Tricuspid Valve Peak Velocity (Regurgitant Flow): 2.22 m/s, 2.58 m/s Pulmonic Valve Mean Gradient: 1.65 mm[Hg], 1.80 mm[Hg], 2.66 mm[Hg] Mean Velocity: 0.57 m/s, 0.61 m/s, 0.75 m/s Peak Velocity: 1.03 m/s Peak Gradient: 3.87 mm[Hg], 3.87 mm[Hg], 4.94 mm[Hg] Right Atrium Right Atrium Systolic Pressure: 33.29 ml, 33.29 ml Dictated by: Chris Alonzo M.D. on 06/16/2025 at 08:49 Approved by: Chris Alonzo M.D. on 06/16/2025 at 08:52
[2025-06-15] MEDS: ENOXAPARIN SODIUM 40 MG/0.4 ML SYRINGE SUBQ (21:32)
[2025-06-15] MEDS: TEMAZEPAM 15 MG CAPSULE PO (21:33)
[2025-06-15] MEDS: ATORVASTATIN CALCIUM 40 MG TABLET PO (21:58)
[2025-06-16] VITALS (10 sets, daily range): BP systolic 97–125; BP diastolic 55–80; PULSE 59–83; TEMP 36.3–37; O2SAT 98–100
[2025-06-16 00:21] LABS: Glucose Urine UA >=1000 mg/dL (NEGATIVE)
[2025-06-16 00:27] LABS: Cast Seen? NONE SEEN #/LPF (NONE SEEN); Crystals Seen? None Seen #/HPF (None Seen); Urine Culture Indicated NO
[2025-06-16 05:47] LABS: Hematocrit 34.0 % (42.0-54.0); Hemoglobin 11.7 g/dL (14.0-18.0); Mean Corpuscular HGB Conc 34.4 g/dL (29.9-35.2); Mean Corpuscular Hemoglobin 32.2 pg (25.9-34.0); Mean Corpuscular Volume 93.7 fL (80.0-94.0); Platelet Count 132 10^3/uL (150-450); Red Blood Count 3.63 10^6/uL (4.70-6.10); White Blood Count 3.7 10^3/uL (4.0-11.0)
[2025-06-16 06:09] LABS: Anion Gap 11.8; Blood Urea Nitrogen 14.0 mg/dL (7.0-18.0); Calcium 8.1 mg/dL (8.5-10.1); Carbon Dioxide 25.8 mmol/L (21.0-32.0); Chloride 108 mmol/L (98-107); Estimated GFR (African America >60 (>=60 mL/min/1.73m^2); Estimated GFR (Non-African Ame >60 (>=60 mL/min/1.73m^2); Glucose 266 mg/dL (74-106); Potassium 3.6 mmol/L (3.5-5.1); Sodium 142 mmol/L (136-145)
[2025-06-16 06:15] LABS: Magnesium 2.2 mg/dL (1.8-2.4)
[2025-06-16] MEDS: INSULIN ASPART 300 UNIT/3 ML PEN SUBQ (08:55)
--- NOTE | 2025-06-16 09:30 | CM.NOTE ---
Rounds made with Dr. Jackson, discussed plan of care with pt. Pt will complete stress test today as ordered. CM will call cardiology to make sure stress will be read today or if pt would be cleared to f/u with cardiology as outpatient for results.
--- NOTE | 2025-06-16 09:45 | NM_ITS ---
Patient Name: PUNEET HENDRICKS MR#: [id number] : 1970 Exam Date: 06/16/2025 Ordering Doctor: EDWINA ARROYO RADIOLOGY REPORT PROCEDURE: NM KALYAN PERF SPECT REST STR COMPARISON: None. INDICATIONS: elevated troponin TECHNIQUE: Exam Description: Stress/Rest one day protocol gated SPECT Rest Imagin.2 mCi Tc-99m Cardiolite IV on 06/16/2025 Stress Imaging 30.9 mCi Tc-99m Cardiolite IV on 06/16/2025 Exercise Protocol: Basilio Heart Rate (bpm): Rest: 71 Max: 142 PMHR: 85 Blood Pressure: Rest: 150/70 Max: 174/80 Exercise Time: Minutes: 7 Seconds: 25 Stage Reached: Stage: 3 Mets 10.1 Symptoms: Rest and peak stress ECG findings were pending and the EKG portion of the study was pending per attending physician [facility] . For more details please see separate cardiac stress test report. FINDINGS: QUALITY OF STUDY: Good PERFUSION DEFECT: LOCATION: Anteroseptal SIZE: Small SEVERITY: Mild TYPE: Reversible WALL MOTION: Normal LV SIZE: 78 mL. TID / TCD: 0.9 LVEF: Calculated EF 58%. SUMMARY: Abnormal myocardial perfusion imaging study CONCLUSION: Abnormal myocardial perfusion stress test showing evidence of mild anteroseptal ischemia Normal left ventricle systolic function, ejection fraction 58% No transient ischemic dilatation, TID score 0.9 EKG portion of stress test is reported separately Dictated by: Jorje Gresham MD on 06/16/2025 at 14:16 Approved by: Jorje Gresham MD on 06/16/2025 at 14:21
--- NOTE | 2025-06-16 10:02 | P.DS_ITS ---
DS: Providers Provider Date of admission: 06/14/25 17:56 Primary care physician: Mackenzie Christie MD Consults: 06/15/25 06:34 Consult to Cardiology Routine Reason for consultation: Elevated trop 06/15/25 11:00 Consult to Automotive Assembler Routine Reason for consultation: For patient diabetes ED Consult to Dietitian Routine Reason for consultation: For patient diabetes diet ED DS: Diagnosis Discharge Diagnosis (1) AGUS (acute kidney injury): (2) Elevated troponin: (3) Diabetic keto-acidosis: Plan As listed above, below and others that are not listed DS: Summary Hospital Course Hospital Course: Mr. Huggins is a 54-year-old gentleman who came in with nausea and vomiting. He was found to have the following: DKA I have accepted to admit the patient to the stepdown unit. Insulin drip. Titration Fluid as per protocol Electrolytes management Monitor bicarbonate and anion gap Switch to sliding scale when gap closes down Check A1c. A1c is 13 Counseling and education about diabetes and diabetes management DKA had resolved Discontinued insulin drip. Started patient on sliding scale, long-acting, meal insulin as well Counseling and education diabetes and diabetes management Diabetes, poor control. A1c is 13. Counseling and education were provided to be compliant with diabetes. PCP is to titrate his insulin to keep his blood sugar between 110 and 150 and the goal of A1c is to be less than 7. AGUS, dehydration and volume loss secondary to above IV fluid infusion, electrolytes disturbance, volume support. Resolved. Discontinued IV fluids Hypokalemia and hypophosphatemia Potassium and phosphate supplementation. Hyperlipidemia Low-fat diet. Has has begun on statin. Borderline hypertension on presentation, given his underlying CAD As outpatient on Toprol-XL 25 mg daily SIRS present on admission secondary to above. No clinical evidence of active infection Monitor white count and temperature. Resolved Elevated troponin without any active chest pain. No ST elevation or depression. Patient has right bundle. No old records available. I suspect that troponin elevation is secondary to acute metabolic derangement in the setting of AGUS. No clinical evidence to suggest acute coronary syndrome or acute plaque rupture however I suspect that the patient has underlying CAD and will likely require ischemic evaluation. The timing of ischemic evaluation would need to be determined as soon as his acute metabolic decompensation is corrected Meanwhile I will start patient on aspirin daily, small dose beta-sriram. 1 dose of Lovenox 1 mg/kg until we see how his troponin is trending. 1 dose of Plavix. No obvious clinical contraindication for that. Echocardiogram to assess cardiac function, valvular status. Echocardiogram does not show cardiomyopathy or significant valvular disease. Patient was seen by bessemer bottom maker who recommended a stress test to be done today. Defer further needed diagnostic and therapeutic invention relative to his cardiovascular status to cardiology team. Chronic medical conditions not listed above, incidental findings seen on labs and imaging. These would need to be addressed. Could be addressed when time and condition are appropriate. Could be addressed in the outpatient setting by PCP collaboration with other needed outpatient providers. Patient is requesting to be discharged home today. I informed the patient that patient is cleared to be discharged home from hospital standpoint however and need cardiology clearance. Cardiology may decide to clear him to be discharged prior to stress test completion and result are available. If cardiology clears the patient to be discharged home then patient will follow- up with the cardiology team in the outpatient setting and will go home today. If cardiology does not clear patient to be discharged then he will need to sign AMA. Patient has multiple complex medical issues as listed above and others that are not listed. All appear to be stable. I do not have any clear or strong clinical justification to extend inpatient hospitalization. Patient however will require close and frequent monitoring as well as additional work-up, investigation and therapeutic intervention that could take place from this point on post discharge. That is to prevent relapse, decompensation, rehospitalization and other medical implications.. I instructed patient to ask her primary care doctor to obtain [facility] record entirely to address abnormalities seen on labs and imaging that I have and have not addressed during this hospitalization, follow-up on pending blood work, imaging and pathology is if available and to follow-up on needed medical care in the outpatient setting. Time Spent with Patient Time attestation: Total time spent providing and/or coordinating discharge services: Time spent: greater than 30 minutes Exam Narrative Exam Narrative: [pt is awake and alert. oriented to place, time and person HEENT: [place] conjunctiva and NL buccal mucosa Neck: Supple, no tenderness Endocrine: No Thyromegaly. Vascular: No JVD or carotid bruit. Lymphatic: No cervical lymphadenopathy. Chest: CTA no DTP. Heart RRR, no extra sound or murmur. Abd: Soft, no tenderness, no rebound and no rigidity. Increase abd girth therefore clinically I could not exclude the possibility of intra abd mass or organomegaly. LE: No cyanosis or clubbing, no varices or edema. Neuro: A A O. Nl speech, comprehension and attention. Nl and symetrical motor and tone examination through out. []] Constitutional Vital Signs, click to edit/add: Last Vital Signs Temp 97.4 F L 06/16/25 08:20 Pulse 69 06/16/25 09:59 Resp 16 06/16/25 09:04 BP 115/71 06/16/25 08:20 Pulse Ox 98 06/16/25 08:20 O2 Del Method Room Air 06/16/25 08:20 DS: Data Data Completed and Pending Labs on day of discharge: Labs from last 24 hours 06/16/25 06/16/25 06/16/25 08:17 05:28 00:05 WBC 3.7 L RBC 3.63 L Hgb 11.7 L Hct 34.0 L MCV 93.7 MCH 32.2 MCHC 34.4 RDW 11.5 Plt Count 132 L MPV 10.4 Sodium 142 Potassium 3.6 Chloride 108 H Carbon Dioxide 25.8 Anion Gap 11.8 BUN 14.0 Creatinine 1.11 Est GFR ( Amer) >60 Est GFR (Non-Af Amer) >60 BUN/Creatinine Ratio 12.6 Glucose 266 H Calcium 8.1 L Phosphorus 2.5 L Magnesium 2.2 Urine Color Lt. yellow Urine Clarity Clear Urine pH 5.5 Ur Specific [place] 1.015 Urine Protein Negative Urine Glucose (UA) >=1000 A Urine Ketones >=80 A Urine Occult Blood Negative Urine Nitrite Negative Urine Bilirubin Negative Urine Urobilinogen 0.2 Ur Leukocyte Esterase Negative Urine RBC None seen Urine WBC None seen Ur Squamous Epith Cells None seen Urine Crystals None seen Urine Bacteria None seen Urine Casts None seen Urine Mucus None seen Ur Culture Indicated? No POC Glucose 294 H 06/15/25 06/15/25 06/15/25 21:32 16:18 11:13 WBC RBC Hgb Hct MCV MCH MCHC RDW Plt Count MPV Sodium Potassium Chloride Carbon Dioxide Anion Gap BUN Creatinine Est GFR ( Amer) Est GFR (Non-Af Amer) BUN/Creatinine Ratio Glucose Calcium Phosphorus Magnesium Urine Color Urine Clarity Urine pH Ur Specific [place] Urine Protein Urine Glucose (UA) Urine Ketones Urine Occult Blood Urine Nitrite Urine Bilirubin Urine Urobilinogen Ur Leukocyte Esterase Urine RBC Urine WBC Ur Squamous Epith Cells Urine Crystals Urine Bacteria Urine Casts Urine Mucus Ur Culture Indicated? POC Glucose 278 H 89 201 H Discharge Plan Discharge Disposition: Home, Self-Care Discharge Medications: New atorvastatin 40 mg Tablet 40 mg PO QHS Qty: 30 1RF K-Phos No 2 305-700 mg Tablet 1 tab PO BID Qty: 10 0RF aspirin 325 mg Tablet,Delayed Release (Dr/Ec) 325 mg PO QD Qty: 30 1RF metoprolol succinate [Toprol XL] 25 mg tablet extended release 24 hr 25 mg PO DAILY Qty: 30 1RF Continued insulin lispro 100 unit/mL insulin pen 1 sliding scale dose SUBCUT .with meals Patient Comments: 1:10 CARB RATIO BEFORE MEALS PLUS CORRECTION 1:75 > 150 MG/DL (MAX DAILY 50 UNITS) duloxetine 30 mg capsule,delayed release(DR/EC) 30 mg PO QDAY Changed insulin degludec 100 unit/mL (3 mL) insulin pen 25 unit subcut DAILY Qty: 0 0RF Print Language: Amharic Activity Restrictions/Additional Instructions: I may not have addressed or treated all of your medical illnesses or the abnormal blood work or imaging studies during this hospitalization. Please ask your primary care provider to obtain [facility] records entirely to follow up on all of the abnormal physical, laboratory, and imaging findings that I have not addressed. Please return back to the emergency room or seek medical attention if your symptoms worsen or return. Discharging you from [facility] does not mean that your medical care ends here and now. You may still need additional monitoring, work up, investigation, and treatment plan to be handled from this point on by out patient providers including your primary care provider and specialists. For any medication question, please contact your retail pharmacist or your primary care provider. Thank you. Forms: Portal Instructions Referrals: AUDREY MCKEON MD [Physician, Cardiology] Mackenzie Christie MD [Primary Care Provider, Family Practice]
--- NOTE | 2025-06-16 10:30 | CM.NOTE ---
Latonia called back from Cardiolgy clinic, Dr. Olsen will try to see pt again after stress test completed.
--- NOTE | 2025-06-16 10:58 | CM.NOTE ---
Called Cardiology office, Latonia is not in at this time. Latonia will call CM when she gets into office today.
--- NOTE | 2025-06-16 11:40 | PC.NURSE ---
Nursing Note Cardiac Stress Test Reviewed: Medication, allergies and patient history reviewed. Stress Test: [x ] Patient tolerated stress test well. [ ] Patient unable to tolerate walking on treadmill. Switched to Lexiscan stress test. [x ] No chest pain noted per patient [ ] Chest pain that resolved prior to leaving stress lab. [ ] No dyspnea noted. [ x] Dyspnea that resolved prior to leaving stress lab. [ ] Patient left stress lab asymptomatic and hemodynamically stable. [ ] Patient taken to the Emergency Room due to non-resolving symptoms following stress test. [x ] Patient achieved target heart rate. [ ] Patient unable to achieve target heart rate. [ ] Aminophylline administered as reversal agent to Lexiscan (Regadenoson). [ ] Nitro administered. Nursing Comments:pt taken to ms room via wheelchair for breakfast prior to second set of images.
[2025-06-16] MEDS: PANTOPRAZOLE SODIUM 40 MG TABLET.DR PO (12:06)
[2025-06-16] MEDS: METOPROLOL TARTRATE 25 MG TABLET PO (12:07)
[2025-06-16] MEDS: ASPIRIN 325 MG TABLET.DR PO (12:07)
[2025-06-16] MEDS: PHOSPHO-TRIN 250 NEUTRAL 250 MG TABLET PO (12:07)
[2025-06-16] MEDS: INSULIN GLARGINE 300 UNIT/3 ML INSULN.PEN 20 UNIT SQ (12:07)
[2025-06-16] MEDS: INSULIN ASPART 300 UNIT/3 ML PEN 6 UNIT SUBQ (12:16)
--- NOTE | 2025-06-16 12:28 | PM.STRESS ---
Stress Test Stress Test Allergies Allergy/AdvReac Type Severity Reaction Status Date / Time acetaminophen (From Tylenol) Allergy Mild Hives Verified 06/14/25 10:36 meperidine (From Demerol) Allergy Mild Hives Verified 06/14/25 10:36 Requesting physician: Donnell Jackson Procedure: Treadmill nuclear stress test General Information: Reason for Stress Test: [Chest pain, CAD, elevated troponin] Cardiac History and Risk Factors: [History of CAD, hypertension, hyperlipidemia] Resting 12 - Lead Electrocardiogram: Resting twelve-lead EKG showed normal sinus rhythm, heart rate 100 bpm, right axis deviation, right bundle branch block. Resting blood pressure 150/70 mmHg Patient was exercised according to standard Basilio protocol and he was able to finish 7 minutes and 25 seconds of exercise consistent with stage III achieving 10.10 METS and max heart rate of 142 bpm which represents 85% of age-predicted maximum heart rate, peak blood pressure 174/80 mmHg. The patient became short of breath at peak exercise. He did not experience any chest, neck, jaw, or arm discomfort. Patient was monitored for a total of 6 minutes into recovery phase with heart rate down to 88 bpm and blood pressure back to 142/74 mmHg. EKG during exercise, at peak exercise, and during recovery phase did not show any significant T or ST changes or any arrhythmias Stress Test: Protocol: [Basilio] Exercise Capacity: [Good] Blood Pressure Response: [Normal] Rhythm: [No arrhythmia] ST - Response: [No ST changes] Patient Response: [No chest pain] Interpretation: Maximal stress test Appropriate heart rate and blood pressure response to exercise Good exercise tolerance This stress test is negative for exercise-induced ischemic symptoms, EKG changes, or arrhythmias The nuclear myocardial perfusion stress images report will be dictated separately Jorje Gresham MD, FACC
--- NOTE | 2025-06-21 14:19 | CM.DCFOLLOWU ---
Person spoke with:Melecio How are you feeling?I'm feeling ok How is your pain? No pain Did you understand your discharge instructions? Yes Do you have any questions about your discharge instructions?No Were you given any prescriptions at discharge? Yes Were you able to get your prescriptions filled? No, he has not picked them up due to only having $5 until Friday. He states he has enough insulin at home to get him until Friday and he isn't worried about the other medications. Do you understand how to take your medications as ordered? Yes Do you have any questions about your follow up appointment and do you plan to keep your follow up appointment? He states he cancelled all of his follow up appts except for Cardiology and that was rescheduled until 07/11/2025 Is there anything else that you would like to discuss? No Questions/Comments/Concerns/Other:
== END 2025-06-16 16:04 | disposition home or self-care (01) | DRG 637 ==
LOC: ER 16:31 → MS 18:01
PROVIDERS: Admitting Provider Internal Medicine; Emergency Provider Emergency Medicine; PCP Family Medicine; Visit Provider Internal Medicine
DX: E11.10 Type 2 diabetes mellitus with ketoacidosis without coma (principal); R65.11 Systemic inflammatory response syndrome (SIRS) of non-infectious origin with acute organ dysfunction; N17.9 Acute kidney failure, unspecified; Z79.4 Long term (current) use of insulin; R79.89 Other specified abnormal findings of blood chemistry; I25.10 Atherosclerotic heart disease of native coronary artery without angina pectoris; Z87.39 Personal history of other diseases of the musculoskeletal system and connective tissue; Z95.5 Presence of coronary angioplasty implant and graft; Z87.891 Personal history of nicotine dependence; E86.0 Dehydration; E87.6 Hypokalemia; E83.39 Other disorders of phosphorus metabolism; E78.5 Hyperlipidemia, unspecified; I10 Essential (primary) hypertension
CPT/HCPCS: 36415; 71045; 78452; 80048; 80053; 80061; 80076; 81001; 82009; 82800; 82948; 83036; 83735; 84100; 84484; 85025; 85027; 93005; 93017; 93306; 96361; 96365; 96372; 96375; 99285; A9500; J1650; J2405; J3480